=== PATIENT | female | born 1960 | race Caucasian/White ===

== ENCOUNTER 2020-07-10 12:55 | Outpatient (CLI) | payer MEDICARE, MEDICAID ==
[2020-07-11 01:48] LABS: SARS-CoV-2 PCR by NAA Not Detected (NotDetected)
== END 2020-07-10 12:56 | disposition home or self-care (01) ==
LOC: CSHLAB 12:55
PROVIDERS: ATTEND Internal Medicine Pulmonary Disease
DX: Z20.822 Contact with and (suspected) exposure to COVID-19 (principal); J44.9 Chronic obstructive pulmonary disease, unspecified
CPT/HCPCS: 87635; U0003; U0005

== ENCOUNTER 2020-07-16 13:51 | Outpatient (CLI) | payer MEDICARE, MEDICAID | END 2020-07-16 13:52 | disposition home or self-care (01) | LOC: CSHCP 13:51 | PROVIDERS: ATTEND Internal Medicine Pulmonary Disease | DX: J44.9 Chronic obstructive pulmonary disease, unspecified (principal); R94.2 Abnormal results of pulmonary function studies | CPT/HCPCS: 94060; 94726; 94729; 94760 ==

== ENCOUNTER 2021-01-18 14:21 | Inpatient (IN) | payer MEDICARE, MEDICAID ==
[2021-01-18] MEDS ORDERED: methylPREDNISolone Sod Succ/PF 125 MG/2 ML VIAL ONE (14:33)
[2021-01-18] MEDS ORDERED: Morphine 4 MG/ML VIAL ONE (14:34)
[2021-01-18 15:11] LABS: ALT (SGPT) 30 U/L (8-55); AST (SGOT) 26 U/L (5-34); Albumin 4.6 g/dL (3.5-5.0); Alkaline Phosphatase 121 U/L (40-110); BUN (Urea Nitrogen) 10 mg/dL (9.8-20.1); Bilirubin, Total 0.3 mg/dL (0.2-1.2); Calc. Creatinine Clearance 0 mL/min (70-130); Calcium 9.9 mg/dL (7.8-10.44); Globulin 2.7 g/dL (2.4-3.5); Glucose 119 mg/dL (70-105); Protein, Total 7.3 g/dL (6.0-8.3)
[2021-01-18 15:18] LABS: #Monocytes 0.8 10x3/uL (0.0-1.1); #Neutrophils 4.7 10x3/uL (1.5-8.4); %Basophils 0.2 % (0.0-2.0); %Eosinophils 0.2 % (0.0-6.0); %Lymphocytes 12.3 % (18.0-47.0); %Monocytes 13.2 % (0.0-10.0); %Neutrophils 73.8 % (40.0-75.0); Hemoglobin 12.4 g/dL (12.0-15.5); Mean Corpuscular HGB CONC 29.2 g/dL (32.0-36.0); Mean Corpuscular Hemoglobin 30.3 pg (27.0-33.0); Mean Corpuscular Volume 103.9 fl (81.6-98.3); Mean Platelet Volume 8.9 fl (7.4-10.4); Platelet Count 225 10x3/uL (150-450); RBC Distribution Width 14.6 % (11.5-14.5); Red Blood Cell (RBC) Count 4.09 10x6/uL (3.90-5.03); White Blood Cell (WBC) Count 6.4 10x3/uL (3.5-10.5)
[2021-01-18 15:19] LABS: Anion Gap 18 mmol/L (10-20); Carbon Dioxide 39 mmol/L (22-29); Chloride 92 mmol/L (98-107); Potassium 3.8 mmol/L (3.5-5.1); Sodium 145 mmol/L (136-145)
[2021-01-18] MEDS ORDERED: cefTRIAXone\\ROCEPHIN 2 GM VIAL ONE (15:19)
[2021-01-18] MEDS ORDERED: Azithromycin 500 MG VIAL ONE (15:19)
[2021-01-18 15:22] LABS: Actual Bicarbonate (HCO3v) 45 mEq/L (22-28); Base Excess 12.5 mEq/L (-2.0 to +3.0); Chloride (VBG) 91 mmol/L (98-106); Hemoglobin (Hb) 15.4 g/dL (11.7-16.0); Puncture Site Other Site; RapidComm Collect By LAB; Sodium 142.6 mmol/L (133-146); pH (venous) 7.26 (7.32-7.43)
[2021-01-18] MEDS ORDERED: Albuterol Sulfate 2.5 mg/3 ml Neb NEB PRN (16:37)
[2021-01-18] MEDS ORDERED: Acetaminophen 325 MG TAB PO PRN (16:39)
[2021-01-18] MEDS ORDERED: Ondansetron ODT 4 MG TAB PO PRN (16:39)
[2021-01-18] MEDS ORDERED: Acetaminophen 650 MG Suppository PR PRN (16:39)
[2021-01-18] MEDS ORDERED: Bisacodyl 5 MG TAB PO PRN ×2 (16:39→20:55)
[2021-01-18] MEDS ORDERED: Senokot S 8.6-50 MG TAB PO PRN (16:39)
[2021-01-18] MEDS ORDERED: Ondansetron PF 4 MG/2 ML Vial IVP PRN (16:39)
[2021-01-18 16:56] LABS: Actual Bicarbonate (HCO3a) 49.8 mEq/L (22-28); Base Excess (BEa) 15.7 mEq/L (-2.0 to +3.0); CO2 Tension 141.5 mmHg (35.0-45.0); Calcium, Ionized (arterial) 1.26 mmol/L (1.12-1.30); Carboxyhemoglobin (COHb) 2.5 gm% (0.0-3.0); Hemoglobin (Hb) 12.4 g/dL (12.0-16.0); O2 Tension (PaO2), arterial 238.2 mmHg (80.0-100.0); Potassium - ABG Lab 4.4 mmol/L (3.70-5.30); Puncture Site LBA; pH, Arterial 7.16 (7.35-7.45)
[2021-01-18 17:00] LABS: ALV-art Gradient -158.395 mmHg (0-20)
[2021-01-18] MEDS ORDERED: Midazolam HCl 2 mg/2 ml Vial ONE (17:23)
[2021-01-18] MEDS ORDERED: Electrolyte Replacement Protocol 1 EACH IVPB PRN (17:36)
[2021-01-18] MEDS ORDERED: Ventilator Sedation Protocol 1 EACH FS PRN (17:45)
[2021-01-18 18:03] LABS: Troponin I Less than 0.010 ng/mL (< 0.028)
[2021-01-18] MEDS ORDERED: Propofol 1,000 MG/100 ML VIAL IV ONE (18:03)
[2021-01-18] MEDS ORDERED: Albuterol Sulfate 2.5 mg/3 ml Neb ONE (18:32)
[2021-01-18] MEDS ORDERED: fentaNYL Citrate-0.9 % NaCl/PF 100 ML IVPB SCH (19:00)
[2021-01-18] MEDS ORDERED: Propofol BOLUS 1,000 MG/100 ML VIAL IV PRN (19:15)
[2021-01-18] MEDS ORDERED: DISCONTINUE PREVIOUS NARCOTIC PAIN MEDICATIONS AND BENZODIAZEPINES FS SCH (19:15)
[2021-01-18] MEDS ORDERED: Fentanyl BOLUS 250 ML IVPB PRN (19:15)
[2021-01-18] MEDS ORDERED: Morphine 2 MG/ML VIAL SLOW IVP PRN (19:15)
[2021-01-18 19:19] LABS: SARS-CoV-2 NAA Rapid Test Not Detected (NotDetected)
[2021-01-18] MEDS: fentaNYL Citrate-0.9 % NaCl/PF 100 ML IVPB SCH (19:35)
[2021-01-18 19:54] LABS: CO2 Tension 61.1 mmHg (35.0-45.0); Calcium, Ionized (arterial) 1.13 mmol/L (1.12-1.30); Hemoglobin (Hb) 12.2 g/dL (12.0-16.0); O2 Tension (PaO2), arterial 82.6 mmHg (80.0-100.0); Potassium - ABG Lab 4.2 mmol/L (3.70-5.30); Puncture Site RRA; pH, Arterial 7.38 (7.35-7.45)
[2021-01-18 19:58] LABS: ALV-art Gradient 90.575 mmHg (0-20)
[2021-01-18] MEDS ORDERED: PROPOFOL 200 MG/20 ML VIAL ONE (20:20)
[2021-01-18] MEDS ORDERED: Rocuronium Bromide 10 MG/ML (10ML VIAL) ONE (20:20)
[2021-01-18] MEDS ORDERED: Succinylcholine 200 MG/10 ml SYRINGE FS ONE (20:20)
[2021-01-18] MEDS ORDERED: Magnesium 2 GM/50 ML 2 GM in Premix Bag 1 BAG IVPB SCH (21:00)
[2021-01-18] MEDS ORDERED: Ventilator Sedation Protocol 1 EACH FS SCH (21:00)
[2021-01-18 21:50] LABS: Troponin I Less than 0.010 ng/mL (< 0.028)
[2021-01-18] MEDS: Heparin 5,000 UNITS/ML VIAL SC SCH (21:55)
[2021-01-18] MEDS: levETIRAcetam 500 MG TAB PO SCH (21:56)
[2021-01-18 21:59] LABS: Bilirubin Neg (Negative); Blood, Urine Negative (Negative); Clarity Clear (Clear); Glucose, Urine (Dipstick) Normal (Negative); Ketone, Urine Negative (Negative); Leukocyte Negative (Negative); Nitrite Negative (Negative); Protein, Urine (Dipstick) 30 mg/dl (Neg-Trace); Specific Gravity, Urine 1.015 (1.002-1.036); Urobilinogen Normal mg/dL (Less than 2); pH, Urine 6.5 (5.0-9.0)
[2021-01-18 22:17] LABS: Bacteria/HPF Rare-Few HPF (None Seen); RBC/HPF 0-3 HPF (0-3); Squamous Epithelial 0-3 HPF (0-3); Transitional Epithelial 0-3 HPF (None Seen); WBC/HPF 0-3 HPF (0-3)
[2021-01-18 22:18] LABS: Mucous/LPF Rare LPF (<2+)
[2021-01-18 22:20] LABS: Legionella Urinary Ag Negative (Negative); Strep pneumo Urine Ag NEGATIVE (NEGATIVE)
[2021-01-18] MEDS ORDERED: FLU VACC QS2021-22(6MOS UP)/PF 60 MCG/0.5 ML SYRINGE IM ONE (22:30)
[2021-01-18] MEDS ORDERED: methylPREDNISolone Sod Succ 40 MG VIAL IVP SCH (23:59)
[2021-01-19] MEDS: methylPREDNISolone Sod Succ 40 MG VIAL IVP SCH ×4 (00:09→17:47)
[2021-01-19] MEDS: Lorazepam 2 MG/ML VIAL SLOW IVP PRN ×3 (01:02→08:42)
[2021-01-19] MEDS: Propofol 1,000 MG/100 ML VIAL IV PRN ×2 (02:51→23:42)
[2021-01-19] MEDS: Albuterol Sulfate 2.5 mg/0.5 ml Neb NEB PRN (03:40)
[2021-01-19 03:50] LABS: #Monocytes 0.4 10x3/uL (0.0-1.1); #Neutrophils 6.4 10x3/uL (1.5-8.4); %Basophils 0.1 % (0.0-2.0); %Lymphocytes 4.2 % (18.0-47.0); %Neutrophils 89.3 % (40.0-75.0); Hemoglobin 10.8 g/dL (12.0-15.5); Mean Corpuscular HGB CONC 31.7 g/dL (32.0-36.0); Mean Corpuscular Hemoglobin 32.8 pg (27.0-33.0); Mean Corpuscular Volume 103.6 fl (81.6-98.3); Mean Platelet Volume 10.3 fl (7.4-10.4); Platelet Count 171 10x3/uL (150-450); RBC Distribution Width 14.3 % (11.5-14.5); Red Blood Cell (RBC) Count 3.29 10x6/uL (3.90-5.03); White Blood Cell (WBC) Count 7.1 10x3/uL (3.5-10.5)
[2021-01-19 04:06] LABS: Phosphorus 1.2 mg/dL (2.3-4.7)
[2021-01-19 04:11] LABS: ALT (SGPT) 23 U/L (8-55); AST (SGOT) 31 U/L (5-34); Albumin 3.1 g/dL (3.5-5.0); Alkaline Phosphatase 71 U/L (40-110); Anion Gap 16 mmol/L (10-20); BUN (Urea Nitrogen) 11 mg/dL (9.8-20.1); Bilirubin, Total 0.3 mg/dL (0.2-1.2); Calc. Creatinine Clearance 45 mL/min (70-130); Carbon Dioxide 29 mmol/L (22-29); Chloride 93 mmol/L (98-107); Globulin 3.1 g/dL (2.4-3.5); Glucose 95 mg/dL (70-105); Magnesium 2.1 mg/dL (1.6-2.6); Potassium 4.8 mmol/L (3.5-5.1); Protein, Total 6.2 g/dL (6.0-8.3); Sodium 133 mmol/L (136-145)
[2021-01-19] MEDS ORDERED: Potassium Phosphate 30 MMOL in Sodium Chloride 0.9% 500 ML IVPB SCH (05:00)
[2021-01-19] MEDS: Levothyroxine Sodium 50 MCG TAB PO SCH (05:25)
[2021-01-19 07:24] LABS: ALV-art Gradient 104.525 mmHg (0-20); Actual Bicarbonate (HCO3a) 34.4 mEq/L (22-28); Base Excess (BEa) 9.5 mEq/L (-2.0 to +3.0); CO2 Tension 48.5 mmHg (35.0-45.0); Calcium, Ionized (arterial) 1.11 mmol/L (1.12-1.30); Carboxyhemoglobin (COHb) 0.8 gm% (0.0-3.0); Hemoglobin (Hb) 10.7 g/dL (12.0-16.0); O2 Tension (PaO2), arterial 84.4 mmHg (80.0-100.0); Potassium - ABG Lab 4.3 mmol/L (3.70-5.30); Puncture Site RRA; pH, Arterial 7.47 (7.35-7.45)
[2021-01-19] MEDS: Famotidine/PF 20 mg/2ml Vial SLOW IVP SCH (08:00)
[2021-01-19] MEDS: levETIRAcetam 500 MG TAB PO SCH ×2 (08:13→20:15)
[2021-01-19] MEDS: Heparin 5,000 UNITS/ML VIAL SC SCH ×2 (08:14→20:15)
[2021-01-19] MEDS: Nicotine 21 MG PATCH TD SCH (08:14)
[2021-01-19] MEDS ORDERED: cefTRIAXone\\ROCEPHIN 2 GM in Sodium Chloride 0.9% 100 ML IVPB SCH (15:00)
[2021-01-19] MEDS ORDERED: cefTRIAXone\\ROCEPHIN 1 GM in Sodium Chloride 0.9% 100 ML IVPB SCH (15:00)
[2021-01-19] MEDS: fentaNYL Citrate-0.9 % NaCl/PF 100 ML IVPB SCH (15:16)
[2021-01-19] MEDS: Azithromycin 500 MG in Sodium Chloride 0.9% 250 ML 250 ML IVPB SCH (15:59)
[2021-01-19] MEDS ORDERED: Azithromycin 500 MG in Sodium Chloride 0.9% 250 ML 250 ML IVPB SCH (16:00)
[2021-01-19] MEDS ORDERED: Norepinephrine 8 MG/0.9% NS 250 ML ONE (17:00)
[2021-01-19] MEDS ORDERED: Norepinephrine 8 MG/0.9% NS 250 ML IVPB SCH (17:00)
[2021-01-20] MEDS: fentaNYL Citrate-0.9 % NaCl/PF 100 ML IVPB SCH (00:35)
[2021-01-20] MEDS: methylPREDNISolone Sod Succ 40 MG VIAL IVP SCH ×3 (00:35→20:06)
[2021-01-20] MEDS: Lorazepam 2 MG/ML VIAL SLOW IVP PRN ×4 (00:35→16:57)
[2021-01-20] MEDS: Levothyroxine Sodium 50 MCG TAB PO SCH (04:57)
[2021-01-20 06:31] LABS: ALT (SGPT) 22 U/L (8-55); AST (SGOT) 38 U/L (5-34); Albumin 2.8 g/dL (3.5-5.0); Alkaline Phosphatase 64 U/L (40-110); Anion Gap 12 mmol/L (10-20); BUN (Urea Nitrogen) 12 mg/dL (9.8-20.1); Bilirubin, Total 0.3 mg/dL (0.2-1.2); Calc. Creatinine Clearance 50 mL/min (70-130); Calcium 7.7 mg/dL (7.8-10.44); Carbon Dioxide 27 mmol/L (22-29); Chloride 105 mmol/L (98-107); Globulin 1.7 g/dL (2.4-3.5); Glucose 119 mg/dL (70-105); Protein, Total 4.5 g/dL (6.0-8.3); Sodium 140 mmol/L (136-145)
[2021-01-20 07:23] LABS: Anisocytosis SLIGHT = 6-15 cells (100X) (0-5/hpf); Band 4 % (5-11); Hemoglobin 8.8 g/dL (12.0-15.5); Hypochromia SLIGHT = 6-15 cells (100X) (0-5/hpf); Large Platelets SLIGHT; Lymphocytes 4 % (21-51); MDiff Complete? YES; Macrocytosis SLIGHT = 6-15 cells (100X) (0-5/hpf); Mean Corpuscular HGB CONC 30.8 g/dL (32.0-36.0); Mean Corpuscular Hemoglobin 30.3 pg (27.0-33.0); Mean Corpuscular Volume 98.6 fl (81.6-98.3); Mean Platelet Volume 9.5 fl (7.4-10.4); Monocytes 6 % (0-10); Neutrophil 85 % (42-75); Ovalocytes SLIGHT = 2-5 cells (100X) (0-1/hpf); Phosphorus 3.3 mg/dL (2.3-4.7); Platelet Count 170 10x3/uL (150-450); RBC Distribution Width 15.2 % (11.5-14.5); Reactive Lymphocytes 1 % (0-10); White Blood Cell (WBC) Count 9.3 10x3/uL (3.5-10.5)
[2021-01-20 07:46] LABS: ALV-art Gradient 538.125 mmHg (0-20); Actual Bicarbonate (HCO3a) 29.4 mEq/L (22-28); Base Excess (BEa) 3.9 mEq/L (-2.0 to +3.0); CO2 Tension 49.7 mmHg (35.0-45.0); Calcium, Ionized (arterial) 1.14 mmol/L (1.12-1.30); Carboxyhemoglobin (COHb) 0.3 gm% (0.0-3.0); Hemoglobin (Hb) 8.8 g/dL (12.0-16.0); O2 Tension (PaO2), arterial 77.1 mmHg (80.0-100.0); Potassium - ABG Lab 3.9 mmol/L (3.70-5.30); Puncture Site RRA; pH, Arterial 7.39 (7.35-7.45)
[2021-01-20] MEDS: Nicotine 21 MG PATCH TD SCH (09:14)
[2021-01-20] MEDS: levETIRAcetam 500 MG TAB PO SCH ×2 (09:14→20:06)
[2021-01-20] MEDS: Famotidine/PF 20 mg/2ml Vial SLOW IVP SCH (09:16)
[2021-01-20] MEDS: Heparin 5,000 UNITS/ML VIAL SC SCH ×2 (09:16→20:06)
[2021-01-20] MEDS: Dexmedetomidine In 0.9 % NaCl 100 ML IVPB SCH ×2 (10:40→20:08)
[2021-01-20 10:43] LABS: Iron 86 ug/dL (50-170); Iron Binding Capacity, Total 303 mcg/dL (265-497)
[2021-01-20] MEDS: Azithromycin 500 MG in Sodium Chloride 0.9% 250 ML 250 ML IVPB SCH (15:30)
[2021-01-20] MEDS: Ondansetron PF 4 MG/2 ML Vial IVP PRN (15:30)
[2021-01-20] MEDS: Albuterol Sulfate 2.5 mg/0.5 ml Neb NEB PRN (19:45)
[2021-01-20] MEDS: Cyproheptadine 4 MG TAB PO SCH (20:06)
[2021-01-21 03:54] LABS: ALT (SGPT) 31 U/L (8-55); AST (SGOT) 53 U/L (5-34); Albumin 2.8 g/dL (3.5-5.0); Alkaline Phosphatase 63 U/L (40-110); Anion Gap 11 mmol/L (10-20); BUN (Urea Nitrogen) 10 mg/dL (9.8-20.1); Bilirubin, Total 0.3 mg/dL (0.2-1.2); Calc. Creatinine Clearance 66 mL/min (70-130); Calcium 8.2 mg/dL (7.8-10.44); Carbon Dioxide 32 mmol/L (22-29); Chloride 107 mmol/L (98-107); Globulin 1.8 g/dL (2.4-3.5); Glucose 85 mg/dL (70-105); Potassium 4.8 mmol/L (3.5-5.1); Sodium 145 mmol/L (136-145)
[2021-01-21 03:57] LABS: Protein, Total 4.6 g/dL (6.0-8.3)
[2021-01-21 04:56] LABS: Band 1 % (5-11); Basophilic Stippling SLIGHT = 1-2 cells (100X) (None Seen); Hemoglobin 8.9 g/dL (12.0-15.5); Hypochromia SLIGHT = 6-15 cells (100X) (0-5/hpf); Lymphocytes 8 % (21-51); MDiff Complete? YES; Macrocytosis SLIGHT = 6-15 cells (100X) (0-5/hpf); Mean Corpuscular HGB CONC 29.5 g/dL (32.0-36.0); Mean Corpuscular Hemoglobin 30.8 pg (27.0-33.0); Mean Corpuscular Volume 104.5 fl (81.6-98.3); Mean Platelet Volume 9.5 fl (7.4-10.4); Monocytes 7 % (0-10); Neutrophil 84 % (42-75); Platelet Count 161 10x3/uL (150-450); Platelet Morphology Comment Appears Adequate; RBC Distribution Width 15.2 % (11.5-14.5); Red Blood Cell (RBC) Count 2.89 10x6/uL (3.90-5.03); White Blood Cell (WBC) Count 9.8 10x3/uL (3.5-10.5)
[2021-01-21] MEDS: Ondansetron PF 4 MG/2 ML Vial IVP PRN ×2 (05:37→17:05)
[2021-01-21] MEDS: Morphine 4 MG/ML VIAL SLOW IVP PRN ×3 (05:37→17:05)
[2021-01-21] MEDS: Lorazepam 2 MG/ML VIAL SLOW IVP PRN (05:38)
[2021-01-21] MEDS: Levothyroxine Sodium 50 MCG TAB PO SCH (05:38)
[2021-01-21] MEDS: methylPREDNISolone Sod Succ 40 MG VIAL IVP SCH ×2 (08:14→21:33)
[2021-01-21] MEDS: levETIRAcetam 500 MG TAB PO SCH ×2 (08:15→21:31)
[2021-01-21] MEDS: Folic Acid 1 MG TAB PO SCH (08:15)
[2021-01-21] MEDS: Famotidine/PF 20 mg/2ml Vial SLOW IVP SCH ×2 (08:15→21:33)
[2021-01-21] MEDS: Nicotine 21 MG PATCH TD SCH (08:15)
[2021-01-21] MEDS: Heparin 5,000 UNITS/ML VIAL SC SCH ×3 (08:15→21:50)
[2021-01-21] MEDS: pyridOXINE 50 MG (B6) TAB PO SCH (08:16)
[2021-01-21] MEDS: Cyproheptadine 4 MG TAB PO SCH ×2 (08:29→21:33)
[2021-01-21] MEDS: Azithromycin 500 MG in Sodium Chloride 0.9% 250 ML 250 ML IVPB SCH (16:25)
[2021-01-22] MEDS: Morphine 4 MG/ML VIAL SLOW IVP PRN ×4 (01:29→22:05)
[2021-01-22 03:35] LABS: Anion Gap 12 mmol/L (10-20); BUN (Urea Nitrogen) 10 mg/dL (9.8-20.1); Calc. Creatinine Clearance 49 mL/min (70-130); Calcium 8.4 mg/dL (7.8-10.44); Carbon Dioxide 34 mmol/L (22-29); Chloride 103 mmol/L (98-107); Glucose 141 mg/dL (70-105); Potassium 4.6 mmol/L (3.5-5.1); Sodium 144 mmol/L (136-145)
[2021-01-22 03:41] LABS: Hemoglobin 10.4 g/dL (12.0-15.5); Mean Corpuscular HGB CONC 28.6 g/dL (32.0-36.0); Mean Corpuscular Volume 104.9 fl (81.6-98.3); Mean Platelet Volume 9.4 fl (7.4-10.4); Platelet Count 187 10x3/uL (150-450); RBC Distribution Width 15.1 % (11.5-14.5); Red Blood Cell (RBC) Count 3.47 10x6/uL (3.90-5.03); White Blood Cell (WBC) Count 8.3 10x3/uL (3.5-10.5)
[2021-01-22 04:23] LABS: Platelet Morphology Comment Appears Adequate; RBC Morphology Normal
[2021-01-22 04:24] LABS: MDiff Complete? YES
[2021-01-22 04:27] LABS: Lymphocytes 6 % (21-51); Monocytes 1 % (0-10); Neutrophil 93 % (42-75)
[2021-01-22] MEDS: Levothyroxine Sodium 50 MCG TAB PO SCH (05:53)
[2021-01-22] MEDS ORDERED: Sodium Chloride 0.65% Nasal 44 ML BOT EA NARE PRN (09:07)
[2021-01-22] MEDS: Cyproheptadine 4 MG TAB PO SCH ×2 (10:07→21:44)
[2021-01-22] MEDS: Folic Acid 1 MG TAB PO SCH (10:08)
[2021-01-22] MEDS: pyridOXINE 50 MG (B6) TAB PO SCH (10:08)
[2021-01-22] MEDS: levETIRAcetam 500 MG TAB PO SCH ×2 (10:08→21:44)
[2021-01-22] MEDS: Heparin 5,000 UNITS/ML VIAL SC SCH ×2 (10:08→22:34)
[2021-01-22] MEDS: Nicotine 21 MG PATCH TD SCH (10:09)
[2021-01-22] MEDS: methylPREDNISolone Sod Succ 40 MG VIAL IVP SCH (10:09)
[2021-01-22] MEDS: Famotidine/PF 20 mg/2ml Vial SLOW IVP SCH ×2 (10:09→21:45)
[2021-01-22] MEDS: ALPRAZolam 1 MG TAB PO PRN ×2 (11:26→19:25)
[2021-01-22] MEDS: Azithromycin 500 MG in Sodium Chloride 0.9% 250 ML 250 ML IVPB SCH (16:36)
[2021-01-22] MEDS ORDERED: Losartan 25 MG TAB PO SCH (18:45)
[2021-01-22] MEDS ORDERED: QUETIAPINE FUMARATE PO SCH (21:00)
[2021-01-22] MEDS: hydrALAZINE 20 MG/ML VIAL SLOW IVP PRN (22:05)
[2021-01-23] MEDS: Morphine 4 MG/ML VIAL SLOW IVP PRN ×3 (03:11→22:42)
[2021-01-23] MEDS: Levothyroxine Sodium 50 MCG TAB PO SCH (06:13)
[2021-01-23] MEDS: Famotidine/PF 20 mg/2ml Vial SLOW IVP SCH ×2 (08:11→20:36)
[2021-01-23] MEDS: hydrALAZINE 20 MG/ML VIAL SLOW IVP PRN (08:12)
[2021-01-23] MEDS: Cyanocobalamin (Vitamin B-12) 1,000 MCG TAB PO SCH (08:21)
[2021-01-23] MEDS: Cyproheptadine 4 MG TAB PO SCH ×2 (08:22→20:35)
[2021-01-23] MEDS: ALPRAZolam 1 MG TAB PO PRN ×3 (08:22→20:58)
[2021-01-23] MEDS: Losartan Potassium 50 MG TAB PO SCH (08:22)
[2021-01-23] MEDS: Folic Acid 1 MG TAB PO SCH (08:22)
[2021-01-23] MEDS: Fluticasone Propionate Nasal Spray 16 gm Bottle NASAL SCH (08:24)
[2021-01-23] MEDS: Heparin 5,000 UNITS/ML VIAL SC SCH (08:24)
[2021-01-23] MEDS: levETIRAcetam 500 MG TAB PO SCH ×2 (08:25→20:35)
[2021-01-23] MEDS: Nicotine 21 MG PATCH TD SCH (08:25)
[2021-01-23] MEDS: pyridOXINE 50 MG (B6) TAB PO SCH (08:25)
[2021-01-23] MEDS: predniSONE 20 MG TAB PO SCH (08:51)
[2021-01-23] MEDS ORDERED: methylPREDNISolone Sod Succ/PF 125 MG/2 ML VIAL IVP SCH (09:00)
[2021-01-23] MEDS ORDERED: Cepastat Lozenges 1 LOZ PO PRN (11:24)
[2021-01-23] MEDS: Acetaminophen 325 MG TAB PO PRN (15:10)
[2021-01-23] MEDS: Azithromycin 500 MG in Sodium Chloride 0.9% 250 ML 250 ML IVPB SCH (15:10)
[2021-01-23] MEDS: Amlodipine 5 MG TAB PO SCH (15:10)
[2021-01-24 04:28] LABS: Anion Gap 11 mmol/L (10-20); BUN (Urea Nitrogen) 12 mg/dL (9.8-20.1); Calc. Creatinine Clearance 63 mL/min (70-130); Calcium 8.8 mg/dL (7.8-10.44); Carbon Dioxide 31 mmol/L (22-29); Chloride 107 mmol/L (98-107); Glucose 90 mg/dL (70-105); Potassium 4.8 mmol/L (3.5-5.1); Sodium 144 mmol/L (136-145)
[2021-01-24] MEDS: Heparin 5,000 UNITS/ML VIAL SC SCH ×2 (07:02→08:27)
[2021-01-24] MEDS: Levothyroxine Sodium 50 MCG TAB PO SCH (07:03)
[2021-01-24] MEDS: Famotidine/PF 20 mg/2ml Vial SLOW IVP SCH ×2 (08:25→21:48)
[2021-01-24] MEDS: Losartan Potassium 50 MG TAB PO SCH (08:25)
[2021-01-24] MEDS: Cyproheptadine 4 MG TAB PO SCH ×2 (08:25→21:47)
[2021-01-24] MEDS: levETIRAcetam 500 MG TAB PO SCH ×2 (08:26→21:47)
[2021-01-24] MEDS: Acetaminophen 325 MG TAB PO PRN (08:26)
[2021-01-24] MEDS: Folic Acid 1 MG TAB PO SCH (08:26)
[2021-01-24] MEDS: ALPRAZolam 1 MG TAB PO PRN ×3 (08:26→21:47)
[2021-01-24] MEDS: Nicotine 21 MG PATCH TD SCH (08:27)
[2021-01-24] MEDS: Cyanocobalamin (Vitamin B-12) 1,000 MCG TAB PO SCH (08:27)
[2021-01-24] MEDS: Amlodipine 5 MG TAB PO SCH (08:27)
[2021-01-24] MEDS: predniSONE 20 MG TAB PO SCH (08:27)
[2021-01-24] MEDS: pyridOXINE 50 MG (B6) TAB PO SCH (08:27)
[2021-01-24] MEDS: Fluticasone Propionate Nasal Spray 16 gm Bottle NASAL SCH (08:28)
[2021-01-24] MEDS: Morphine 4 MG/ML VIAL SLOW IVP PRN ×2 (12:08→18:41)
[2021-01-25] MEDS: Morphine 4 MG/ML VIAL SLOW IVP PRN ×5 (01:25→22:16)
[2021-01-25] MEDS: Heparin 5,000 UNITS/ML VIAL SC SCH ×3 (03:12→20:35)
[2021-01-25 05:07] LABS: #Basophils 0.1 10x3/uL (0.0-0.2); #Eosinphils 0.2 10x3/uL (0.0-0.5); #Monocytes 1.2 10x3/uL (0.0-1.1); #Neutrophils 6.2 10x3/uL (1.5-8.4); %Basophils 0.6 % (0.0-2.0); %Eosinophils 2.2 % (0.0-6.0); %Lymphocytes 11.7 % (18.0-47.0); %Monocytes 13.6 % (0.0-10.0); %Neutrophils 71.7 % (40.0-75.0); Hemoglobin 11.4 g/dL (12.0-15.5); Mean Corpuscular Hemoglobin 30.4 pg (27.0-33.0); Mean Corpuscular Volume 101.3 fl (81.6-98.3); Mean Platelet Volume 9.2 fl (7.4-10.4); Platelet Count 272 10x3/uL (150-450); RBC Distribution Width 15.5 % (11.5-14.5); Red Blood Cell (RBC) Count 3.75 10x6/uL (3.90-5.03); White Blood Cell (WBC) Count 8.6 10x3/uL (3.5-10.5)
[2021-01-25 05:37] LABS: ALT (SGPT) 43 U/L (8-55); AST (SGOT) 23 U/L (5-34); Albumin 3.5 g/dL (3.5-5.0); Alkaline Phosphatase 86 U/L (40-110); Anion Gap 14 mmol/L (10-20); BUN (Urea Nitrogen) 12 mg/dL (9.8-20.1); Bilirubin, Total 0.2 mg/dL (0.2-1.2); Calc. Creatinine Clearance 61 mL/min (70-130); Calcium 8.9 mg/dL (7.8-10.44); Carbon Dioxide 27 mmol/L (22-29); Chloride 106 mmol/L (98-107); Globulin 2.4 g/dL (2.4-3.5); Glucose 74 mg/dL (70-105); Magnesium 1.9 mg/dL (1.6-2.6); Phosphorus 3.9 mg/dL (2.3-4.7); Potassium 4.2 mmol/L (3.5-5.1); Protein, Total 5.9 g/dL (6.0-8.3); Sodium 143 mmol/L (136-145)
[2021-01-25] MEDS: ALPRAZolam 1 MG TAB PO PRN ×3 (06:15→20:38)
[2021-01-25] MEDS: Levothyroxine Sodium 50 MCG TAB PO SCH (06:15)
[2021-01-25] MEDS: Cyproheptadine 4 MG TAB PO SCH ×2 (09:11→20:34)
[2021-01-25] MEDS: Famotidine/PF 20 mg/2ml Vial SLOW IVP SCH ×2 (09:11→20:34)
[2021-01-25] MEDS: Nicotine 21 MG PATCH TD SCH (09:11)
[2021-01-25] MEDS: predniSONE 20 MG TAB PO SCH (09:12)
[2021-01-25] MEDS: Cyanocobalamin (Vitamin B-12) 1,000 MCG TAB PO SCH (09:12)
[2021-01-25] MEDS: Losartan Potassium 50 MG TAB PO SCH (09:13)
[2021-01-25] MEDS: Fluticasone Propionate Nasal Spray 16 gm Bottle NASAL SCH (09:14)
[2021-01-25] MEDS: Folic Acid 1 MG TAB PO SCH (09:14)
[2021-01-25] MEDS: pyridOXINE 50 MG (B6) TAB PO SCH (09:14)
[2021-01-25] MEDS: Amlodipine 5 MG TAB PO SCH (09:14)
[2021-01-25] MEDS: levETIRAcetam 500 MG TAB PO SCH ×2 (09:14→20:34)
[2021-01-25] MEDS: Acetaminophen 325 MG TAB PO PRN (18:24)
[2021-01-26] MEDS: Acetaminophen 325 MG TAB PO PRN ×2 (00:30→14:45)
[2021-01-26] MEDS: ALPRAZolam 1 MG TAB PO PRN ×3 (00:31→21:15)
[2021-01-26 04:54] LABS: #Eosinphils 0.2 10x3/uL (0.0-0.5); #Neutrophils 4.7 10x3/uL (1.5-8.4); %Basophils 0.6 % (0.0-2.0); %Eosinophils 2.2 % (0.0-6.0); %Lymphocytes 13.6 % (18.0-47.0); %Monocytes 14.3 % (0.0-10.0); Hemoglobin 10.2 g/dL (12.0-15.5); Mean Corpuscular HGB CONC 30.4 g/dL (32.0-36.0); Mean Corpuscular Hemoglobin 30.8 pg (27.0-33.0); Mean Corpuscular Volume 101.5 fl (81.6-98.3); Mean Platelet Volume 8.6 fl (7.4-10.4); Platelet Count 279 10x3/uL (150-450); RBC Distribution Width 15.6 % (11.5-14.5); Red Blood Cell (RBC) Count 3.31 10x6/uL (3.90-5.03); White Blood Cell (WBC) Count 6.9 10x3/uL (3.5-10.5)
[2021-01-26 05:05] LABS: ALT (SGPT) 36 U/L (8-55); AST (SGOT) 20 U/L (5-34); Albumin 3.1 g/dL (3.5-5.0); Alkaline Phosphatase 78 U/L (40-110); Anion Gap 12 mmol/L (10-20); BUN (Urea Nitrogen) 17 mg/dL (9.8-20.1); Bilirubin, Total 0.1 mg/dL (0.2-1.2); Calc. Creatinine Clearance 65 mL/min (70-130); Calcium 8.3 mg/dL (7.8-10.44); Carbon Dioxide 30 mmol/L (22-29); Chloride 103 mmol/L (98-107); Globulin 2.1 g/dL (2.4-3.5); Glucose 96 mg/dL (70-105); Magnesium 1.8 mg/dL (1.6-2.6); Potassium 4.1 mmol/L (3.5-5.1); Protein, Total 5.2 g/dL (6.0-8.3); Sodium 141 mmol/L (136-145)
[2021-01-26] MEDS: Levothyroxine Sodium 50 MCG TAB PO SCH (05:33)
[2021-01-26] MEDS: hydrALAZINE 20 MG/ML VIAL SLOW IVP PRN (05:53)
[2021-01-26] MEDS: Morphine 4 MG/ML VIAL SLOW IVP PRN ×2 (06:06→10:53)
[2021-01-26 07:08] VITALS: BMI 14.4
[2021-01-26] MEDS ORDERED: ALPRAZolam 0.5 MG TAB PO SCH (09:00)
[2021-01-26] MEDS: Fluticasone Propionate Nasal Spray 16 gm Bottle NASAL SCH (09:08)
[2021-01-26] MEDS: pyridOXINE 50 MG (B6) TAB PO SCH (09:10)
[2021-01-26] MEDS: predniSONE 20 MG TAB PO SCH (09:10)
[2021-01-26] MEDS: Cyanocobalamin (Vitamin B-12) 1,000 MCG TAB PO SCH (09:11)
[2021-01-26] MEDS: Folic Acid 1 MG TAB PO SCH (09:11)
[2021-01-26] MEDS: Losartan Potassium 50 MG TAB PO SCH (09:11)
[2021-01-26] MEDS: Amlodipine 5 MG TAB PO SCH (09:11)
[2021-01-26] MEDS: Heparin 5,000 UNITS/ML VIAL SC SCH ×2 (09:13→21:14)
[2021-01-26] MEDS: levETIRAcetam 500 MG TAB PO SCH ×2 (09:13→21:14)
[2021-01-26] MEDS: Cyproheptadine 4 MG TAB PO SCH ×2 (09:13→21:14)
[2021-01-26] MEDS: Nicotine 21 MG PATCH TD SCH (09:14)
[2021-01-26] MEDS: Famotidine/PF 20 mg/2ml Vial SLOW IVP SCH ×2 (09:14→21:14)
[2021-01-26] MEDS: HYDROcodone/Acetaminophen 5/325 mg Tablet PO PRN (21:55)
[2021-01-27 04:15] LABS: #Eosinphils 0.1 10x3/uL (0.0-0.5); #Monocytes 0.8 10x3/uL (0.0-1.1); #Neutrophils 4.5 10x3/uL (1.5-8.4); %Basophils 0.5 % (0.0-2.0); %Eosinophils 2.1 % (0.0-6.0); %Lymphocytes 12.9 % (18.0-47.0); %Monocytes 13.2 % (0.0-10.0); %Neutrophils 70.8 % (40.0-75.0); Hemoglobin 10.3 g/dL (12.0-15.5); Mean Corpuscular HGB CONC 30.1 g/dL (32.0-36.0); Mean Corpuscular Hemoglobin 30.5 pg (27.0-33.0); Mean Corpuscular Volume 101.2 fl (81.6-98.3); Mean Platelet Volume 8.4 fl (7.4-10.4); Platelet Count 252 10x3/uL (150-450); RBC Distribution Width 15.7 % (11.5-14.5); Red Blood Cell (RBC) Count 3.38 10x6/uL (3.90-5.03); White Blood Cell (WBC) Count 6.3 10x3/uL (3.5-10.5)
[2021-01-27 04:40] LABS: ALT (SGPT) 36 U/L (8-55); AST (SGOT) 26 U/L (5-34); Alkaline Phosphatase 77 U/L (40-110); Anion Gap 11 mmol/L (10-20); BUN (Urea Nitrogen) 16 mg/dL (9.8-20.1); Bilirubin, Total 0.1 mg/dL (0.2-1.2); Calc. Creatinine Clearance 56 mL/min (70-130); Calcium 8.5 mg/dL (7.8-10.44); Carbon Dioxide 31 mmol/L (22-29); Chloride 103 mmol/L (98-107); Glucose 115 mg/dL (70-105); Magnesium 1.9 mg/dL (1.6-2.6); Phosphorus 4.7 mg/dL (2.3-4.7); Potassium 4.3 mmol/L (3.5-5.1); Sodium 141 mmol/L (136-145)
[2021-01-27 04:57] VITALS: BP 114/76; TEMP 96.2
[2021-01-27] MEDS: Levothyroxine Sodium 50 MCG TAB PO SCH (05:53)
[2021-01-27] MEDS: ALPRAZolam 1 MG TAB PO PRN (09:26)
[2021-01-27] MEDS: Nicotine 21 MG PATCH TD SCH (09:26)
[2021-01-27] MEDS: Fluticasone Propionate Nasal Spray 16 gm Bottle NASAL SCH (09:26)
[2021-01-27] MEDS: levETIRAcetam 500 MG TAB PO SCH (09:26)
[2021-01-27] MEDS: Losartan Potassium 50 MG TAB PO SCH (09:27)
[2021-01-27] MEDS: predniSONE 20 MG TAB PO SCH (09:27)
[2021-01-27] MEDS: pyridOXINE 50 MG (B6) TAB PO SCH (09:27)
[2021-01-27] MEDS: Amlodipine 5 MG TAB PO SCH (09:27)
[2021-01-27] MEDS: Cyanocobalamin (Vitamin B-12) 1,000 MCG TAB PO SCH (09:27)
[2021-01-27] MEDS: Cyproheptadine 4 MG TAB PO SCH (09:29)
[2021-01-27] MEDS: Famotidine/PF 20 mg/2ml Vial SLOW IVP SCH (09:29)
[2021-01-27] MEDS: Heparin 5,000 UNITS/ML VIAL SC SCH (09:30)
[2021-01-27] MEDS: Folic Acid 1 MG TAB PO SCH (09:30)
[2021-01-27] MEDS: HYDROcodone/Acetaminophen 5/325 mg Tablet PO PRN (10:00)
[2021-01-27] MEDS: Acetaminophen 325 MG TAB PO PRN (12:05)
[2021-01-27 14:20] LABS: SARS-CoV-2 PCR by NAA Not Detected (NotDetected)
== END 2021-01-27 16:30 | disposition home health service (06) | DRG 208 ==
LOC: CSHERS 14:21 → CSHICU 19:11 → CSHTELE 01-21 11:39
PROVIDERS: ADMIT Student in an Organized Health Care Education/Training Program; ATTEND Family Medicine
PROC: 5A1945Z Respiratory Ventilation, 24-96 Consecutive Hours (ICD-10-PCS; principal; 2021-01-18)
PROC: 0BH17EZ Insertion of Endotracheal Airway into Trachea, Via Natural or Artificial Opening (ICD-10-PCS; 2021-01-18)
PROC: 02HV33Z Insertion of Infusion Device into Superior Vena Cava, Percutaneous Approach (ICD-10-PCS; 2021-01-19)
PROC: B548ZZA Ultrasonography of Superior Vena Cava, Guidance (ICD-10-PCS; 2021-01-19)
DX: J96.21 Acute and chronic respiratory failure with hypoxia (principal); G93.41 Metabolic encephalopathy; E43 Unspecified severe protein-calorie malnutrition; J44.1 Chronic obstructive pulmonary disease with (acute) exacerbation; R64 Cachexia; Z68.1 Body mass index [BMI] 19.9 or less, adult; Z20.822 Contact with and (suspected) exposure to COVID-19; J96.22 Acute and chronic respiratory failure with hypercapnia; G40.909 Epilepsy, unspecified, not intractable, without status epilepticus; F40.240 Claustrophobia; I10 Essential (primary) hypertension; D53.9 Nutritional anemia, unspecified; E78.5 Hyperlipidemia, unspecified; F17.210 Nicotine dependence, cigarettes, uncomplicated; E03.9 Hypothyroidism, unspecified; Z71.6 Tobacco abuse counseling; Z99.81 Dependence on supplemental oxygen; Z88.8 Allergy status to other drugs, medicaments and biological substances; Z79.899 Other long term (current) drug therapy; Z98.890 Other specified postprocedural states; Z86.79 Personal history of other diseases of the circulatory system
CPT/HCPCS: 31500; 36415; 36416; 36600; 43752; 51702; 71045; 80048; 80053; 81001; 82607; 82746; 82805; 83540; 83550; 83735; 83880; 84100; 84145; 84443; 84484; 85007; 85025; 85027; 87040; 87070; 87205; 87449; 87899; 93005; 94002; 94003; 94640; 94760; 96374; 96375; J0360; J0456; J0696; J1644; J2060; J2250; J2270; J2405; J2704; J2920; J2930; J3475; J7030; J7050; J7512; J7611; J7620; S0028; U0002; U0003; U0005

== ENCOUNTER 2021-02-05 16:52 | Emergency (ER) | payer MEDICARE, MEDICAID ==
[2021-02-05 17:25] LABS: #Monocytes 0.9 10x3/uL (0.0-1.1); #Neutrophils 6.4 10x3/uL (1.5-8.4); %Basophils 0.2 % (0.0-2.0); %Eosinophils 0.5 % (0.0-6.0); %Lymphocytes 10.2 % (18.0-47.0); %Monocytes 10.7 % (0.0-10.0); Hemoglobin 11.1 g/dL (12.0-15.5); Mean Corpuscular HGB CONC 28.7 g/dL (32.0-36.0); Mean Corpuscular Volume 108.1 fl (81.6-98.3); Mean Platelet Volume 8.3 fl (7.4-10.4); Platelet Count 251 10x3/uL (150-450); RBC Distribution Width 15.5 % (11.5-14.5); Red Blood Cell (RBC) Count 3.58 10x6/uL (3.90-5.03); White Blood Cell (WBC) Count 8.2 10x3/uL (3.5-10.5)
[2021-02-05 17:37] LABS: INR-International Normal Ratio 0.9; PTT Less than 20.0 sec (22.0-33.0); Prothrombin Time 9.8 sec (9.5-12.1)
[2021-02-05 17:39] LABS: ALT (SGPT) 25 U/L (8-55); AST (SGOT) 21 U/L (5-34); Albumin 3.8 g/dL (3.5-5.0); Alkaline Phosphatase 86 U/L (40-110); Anion Gap 15 mmol/L (10-20); BUN (Urea Nitrogen) 10 mg/dL (9.8-20.1); Bilirubin, Total 0.2 mg/dL (0.2-1.2); Calc. Creatinine Clearance 0 mL/min (70-130); Calcium 8.8 mg/dL (7.8-10.44); Carbon Dioxide 37 mmol/L (22-29); Chloride 99 mmol/L (98-107); Globulin 2.1 g/dL (2.4-3.5); Glucose 131 mg/dL (70-105); Potassium 4.7 mmol/L (3.5-5.1); Protein, Total 5.9 g/dL (6.0-8.3); Sodium 146 mmol/L (136-145)
[2021-02-05] MEDS ORDERED: Dexamethasone 10 MG/ML VIAL ONE (17:42)
[2021-02-05] MEDS ORDERED: Morphine 4 MG/ML VIAL ONE ×2 (17:43→18:44)
[2021-02-05] MEDS ORDERED: Boostrix 0.5 ML (Tdap) VIAL ONE (17:43)
[2021-02-05 17:49] LABS: Actual Bicarbonate (HCO3v) 35 mEq/L (22-28); Base Excess 6.4 mEq/L (-2.0 to +3.0); Calcium, Ionized (venous) 1.06 mmol/L (1.16-1.32); Chloride (VBG) 99 mmol/L (98-106); Hemoglobin (Hb) 12.7 g/dL (11.7-16.0); Potassium (VBG) 4.55 mmol/L (3.70-5.30); Puncture Site Other Site; pH (venous) 7.33 (7.32-7.43)
[2021-02-05] MEDS ORDERED: Bacitracin 1 PK ONE (18:27)
[2021-02-05 18:32] LABS: Anisocytosis SLIGHT = 6-15 cells (100X) (0-5/hpf); Hypochromia SLIGHT = 6-15 cells (100X) (0-5/hpf); Macrocytosis SLIGHT = 6-15 cells (100X) (0-5/hpf); Ovalocytes SLIGHT = 2-5 cells (100X) (0-1/hpf); Platelet Morphology Comment Appears Adequate
== END 2021-02-05 19:07 ==
LOC: CSHERS 16:52
DX: T20.26XA Burn of second degree of forehead and cheek, initial encounter (principal); T20.24XA Burn of second degree of nose (septum), initial encounter; I10 Essential (primary) hypertension; J44.9 Chronic obstructive pulmonary disease, unspecified; F17.200 Nicotine dependence, unspecified, uncomplicated; X08.8XXA Exposure to other specified smoke, fire and flames, initial encounter; Z23 Encounter for immunization
CPT/HCPCS: 71045; 80053; 82805; 85025; 85610; 85730; 90471; 90715; 96374; 96375; J1100; J2270

== ENCOUNTER 2021-04-02 18:02 | Inpatient (IN) | payer OTHER, MEDICAID ==
[2021-04-02 18:59] LABS: #Monocytes 0.5 10x3/uL (0.0-1.1); %Basophils 0.4 % (0.0-2.0); %Lymphocytes 6.7 % (18.0-47.0); %Monocytes 5.7 % (0.0-10.0); Hemoglobin 11.3 g/dL (12.0-15.5); Mean Corpuscular HGB CONC 29.7 g/dL (32.0-36.0); Mean Corpuscular Hemoglobin 29.9 pg (27.0-33.0); Mean Corpuscular Volume 100.5 fl (81.6-98.3); Mean Platelet Volume 9.2 fl (7.4-10.4); Platelet Count 204 10x3/uL (150-450); RBC Distribution Width 17.2 % (11.5-14.5); Red Blood Cell (RBC) Count 3.78 10x6/uL (3.90-5.03); White Blood Cell (WBC) Count 8.5 10x3/uL (3.5-10.5)
[2021-04-02 19:16] LABS: Platelet Morphology Comment Appears Adequate
[2021-04-02 19:17] LABS: ALT (SGPT) 13 U/L (8-55); AST (SGOT) 16 U/L (5-34); Albumin 3.6 g/dL (3.5-5.0); Alkaline Phosphatase 55 U/L (40-110); Anion Gap 17 mmol/L (10-20); Anisocytosis SLIGHT = 6-15 cells (100X) (0-5/hpf); BUN (Urea Nitrogen) 14 mg/dL (9.8-20.1); Bilirubin, Total 0.7 mg/dL (0.2-1.2); CK (CPK) 19 U/L (29-168); Calc. Creatinine Clearance 0 mL/min (70-130); Calcium 8.6 mg/dL (7.8-10.44); Carbon Dioxide 32 mmol/L (22-29); Chloride 99 mmol/L (98-107); Globulin 1.9 g/dL (2.4-3.5); Glucose 95 mg/dL (70-105); Hypochromia SLIGHT = 6-15 cells (100X) (0-5/hpf); Potassium 3.5 mmol/L (3.5-5.1); Protein, Total 5.5 g/dL (6.0-8.3); Sodium 144 mmol/L (136-145)
[2021-04-02 20:21] LABS: Bilirubin Neg (Negative); Blood, Urine 10 (Negative); Clarity Clear (Clear); Glucose, Urine (Dipstick) Normal (Negative); Ketone, Urine 15 mg/dL (Negative); Leukocyte Negative (Negative); Nitrite Negative (Negative); Protein, Urine (Dipstick) 30 mg/dl (Neg-Trace); Specific Gravity, Urine 1.015 (1.002-1.036)
[2021-04-02 20:25] LABS: Bacteria/HPF Rare-Few HPF (None Seen); Mucous/LPF Rare LPF (<2+); RBC/HPF 0-3 HPF (0-3); Squamous Epithelial None Seen HPF (0-3)
[2021-04-02 20:35] LABS: WBC/HPF 0-3 HPF (0-3)
[2021-04-02] MEDS ORDERED: Ondansetron PF 4 MG/2 ML Vial IVP PRN (23:29)
[2021-04-02] MEDS ORDERED: Senokot S 8.6-50 MG TAB PO PRN (23:29)
[2021-04-02] MEDS ORDERED: Calcium Carbonate 500 MG ChewTAB PO PRN (23:29)
[2021-04-02] MEDS ORDERED: Guaifenesin DM 100-10/5 ML UDCUP PO PRN (23:29)
[2021-04-02] MEDS ORDERED: Zolpidem Tartrate 5 MG TAB PO PRN (23:29)
[2021-04-02] MEDS ORDERED: Potassium Chloride 20 MEQ TAB PO SCH (23:45)
[2021-04-03] MEDS ORDERED: levETIRAcetam 500 MG in Sodium Chloride 0.9% 100 ML IVPB SCH (00:15)
[2021-04-03 01:25] VITALS: BMI 17.2
[2021-04-03 01:28] LABS: SARS-CoV-2 NAA Rapid Test Not Detected (NotDetected)
[2021-04-03] MEDS ORDERED: levETIRAcetam 500 MG/5 ML VIAL ONE (01:34)
[2021-04-03] MEDS ORDERED: ALPRAZolam 1 MG TAB PO SCH (02:00)
[2021-04-03 04:13] LABS: Amphetamine Not Detected (NotDetected); Barbiturates Screen Not Detected (NotDetected); Benzodiazepine Screen Detected (NotDetected); Cocaine Metabolite Screen Not Detected (NotDetected); Methadone Not Detected (NotDetected); Methamphetamine Not Detected (NotDetected); Opiate Screen Not Detected (NotDetected); Oxycodone Screen Not Detected (NotDetected); Phencyclidine (PCP) Not Detected (NotDetected); THC/Cannabinoid Screen Not Detected (NotDetected); Tricyclic Screen Not Detected (NotDetected)
[2021-04-03 04:39] LABS: Anion Gap 12 mmol/L (10-20); BUN (Urea Nitrogen) 15 mg/dL (9.8-20.1); Calc. Creatinine Clearance 70 mL/min (70-130); Calcium 8.6 mg/dL (7.8-10.44); Carbon Dioxide 36 mmol/L (22-29); Chloride 102 mmol/L (98-107); Glucose 118 mg/dL (70-105); Magnesium 1.7 mg/dL (1.6-2.6); Potassium 3.4 mmol/L (3.5-5.1); Sodium 147 mmol/L (136-145)
[2021-04-03 04:53] LABS: Thyroid Stimulating Hormone 1.2982 uIU/mL (0.35-4.94)
[2021-04-03 06:09] LABS: Syphilis Antibody Nonreactive (Nonreactive); Syphilis Antibody Index 0.02 S/CO (<1.00 Non-Reactive)
[2021-04-03] MEDS ORDERED: Mometasone/Formoterol 200/5 60 PUFF INH SCH (06:30)
[2021-04-03] MEDS: Levothyroxine Sodium 50 MCG TAB PO SCH (06:40)
[2021-04-03] MEDS: Mometasone 100 MCG/PUFF (1 INHALER) INH SCH ×2 (07:18→19:01)
[2021-04-03] MEDS ORDERED: Non-Formulary Medication 1 EACH (Fluticasone/Umeclidin/Vilanter [Trelegy Ellipta 100-62.5- INH SCH (09:00)
[2021-04-03 10:32] LABS: Actual Bicarbonate (HCO3v) 32 mEq/L (22-28); Base Excess 5.5 mEq/L (-2.0 to +3.0); Calcium, Ionized (venous) 1.09 mmol/L (1.16-1.32); Chloride (VBG) 99 mmol/L (98-106); Hemoglobin (Hb) 12.2 g/dL (11.7-16.0); Potassium (VBG) 3.82 mmol/L (3.70-5.30); Puncture Site Other Site; Sodium 141.7 mmol/L (133-146); pH (venous) 7.37 (7.32-7.43)
[2021-04-03] MEDS: ALPRAZolam 0.25 MG TAB PO PRN (12:28)
[2021-04-03] MEDS: cefTRIAXone\\ROCEPHIN 1 GM in Sodium Chloride 0.9% 100 ML IVPB SCH (12:28)
[2021-04-03] MEDS: levETIRAcetam 500 MG TAB PO SCH ×2 (12:28→22:09)
[2021-04-03] MEDS: Losartan Potassium 50 MG TAB PO SCH (12:29)
[2021-04-03] MEDS: Folic Acid 1 MG TAB PO SCH (12:29)
[2021-04-03] MEDS: Cyanocobalamin (Vitamin B-12) 1,000 MCG TAB PO SCH (12:29)
[2021-04-03] MEDS: pyridOXINE 50 MG (B6) TAB PO SCH (12:30)
[2021-04-03] MEDS: Cyproheptadine 4 MG TAB PO SCH ×2 (12:30→22:12)
[2021-04-03] MEDS: Amlodipine 5 MG TAB PO SCH (12:30)
[2021-04-03] MEDS: Acetaminophen 325 MG TAB PO PRN (12:31)
[2021-04-03 12:38] LABS: Hemoglobin A1c 4.6 % (4.0-6.0)
[2021-04-03] MEDS ORDERED: QUETIAPINE FUMARATE 150 MG PO SCH (21:00)
[2021-04-03] MEDS: Atorvastatin Calcium 10 MG TAB PO SCH (22:09)
[2021-04-04 04:49] LABS: #Eosinphils 0.1 10x3/uL (0.0-0.5); #Monocytes 0.5 10x3/uL (0.0-1.1); #Neutrophils 4.2 10x3/uL (1.5-8.4); %Basophils 0.5 % (0.0-2.0); %Eosinophils 2.2 % (0.0-6.0); %Lymphocytes 15.5 % (18.0-47.0); %Neutrophils 72.5 % (40.0-75.0); Hemoglobin 10.8 g/dL (12.0-15.5); Mean Corpuscular HGB CONC 28.3 g/dL (32.0-36.0); Mean Corpuscular Hemoglobin 29.8 pg (27.0-33.0); Mean Platelet Volume 8.7 fl (7.4-10.4); Platelet Count 204 10x3/uL (150-450); Red Blood Cell (RBC) Count 3.63 10x6/uL (3.90-5.03); White Blood Cell (WBC) Count 5.8 10x3/uL (3.5-10.5)
[2021-04-04 04:58] LABS: BUN (Urea Nitrogen) 10 mg/dL (9.8-20.1); Calc. Creatinine Clearance 80 mL/min (70-130); Calcium 8.5 mg/dL (7.8-10.44); Glucose 85 mg/dL (70-105)
[2021-04-04 05:06] LABS: Anion Gap 14 mmol/L (10-20); Carbon Dioxide 35 mmol/L (22-29); Chloride 100 mmol/L (98-107); Potassium 4.5 mmol/L (3.5-5.1); Sodium 144 mmol/L (136-145)
[2021-04-04] MEDS: Levothyroxine Sodium 50 MCG TAB PO SCH (06:33)
[2021-04-04] MEDS: Mometasone 100 MCG/PUFF (1 INHALER) INH SCH ×2 (07:33→18:54)
[2021-04-04] MEDS ORDERED: FLU VACC QS2021-22(6MOS UP)/PF 60 MCG/0.5 ML SYRINGE IM ONE (09:00)
[2021-04-04] MEDS: Folic Acid 1 MG TAB PO SCH (09:08)
[2021-04-04] MEDS: levETIRAcetam 500 MG TAB PO SCH ×2 (09:08→21:13)
[2021-04-04] MEDS: Cyanocobalamin (Vitamin B-12) 1,000 MCG TAB PO SCH (09:09)
[2021-04-04] MEDS: pyridOXINE 50 MG (B6) TAB PO SCH (09:09)
[2021-04-04] MEDS: Amlodipine 5 MG TAB PO SCH (09:09)
[2021-04-04] MEDS: Losartan Potassium 50 MG TAB PO SCH (09:09)
[2021-04-04] MEDS: cefTRIAXone\\ROCEPHIN 1 GM in Sodium Chloride 0.9% 100 ML IVPB SCH (09:10)
[2021-04-04] MEDS: Cyproheptadine 4 MG TAB PO SCH ×2 (09:14→21:13)
[2021-04-04] MEDS: Acetaminophen 325 MG TAB PO PRN (15:24)
[2021-04-04] MEDS: ALPRAZolam 0.25 MG TAB PO PRN ×2 (15:24→21:16)
[2021-04-04] MEDS: Atorvastatin Calcium 10 MG TAB PO SCH (21:13)
[2021-04-05] MEDS ORDERED: diphenhydrAMINE 25 MG CAP PO PRN (00:15)
[2021-04-05] MEDS: Nicotine 14 MG PATCH TOP PRN (00:21)
[2021-04-05] MEDS: Acetaminophen 325 MG TAB PO PRN ×3 (00:21→20:15)
[2021-04-05 07:15] LABS: ALT (SGPT) 14 U/L (8-55); AST (SGOT) 16 U/L (5-34); Albumin 3.4 g/dL (3.5-5.0); Alkaline Phosphatase 63 U/L (40-110); BUN (Urea Nitrogen) 13 mg/dL (9.8-20.1); Bilirubin, Total 0.4 mg/dL (0.2-1.2); Calc. Creatinine Clearance 70 mL/min (70-130); Globulin 2.1 g/dL (2.4-3.5); Glucose 70 mg/dL (70-105); Magnesium 1.8 mg/dL (1.6-2.6); Phosphorus 3.1 mg/dL (2.3-4.7); Protein, Total 5.5 g/dL (6.0-8.3)
[2021-04-05 07:20] LABS: #Eosinphils 0.1 10x3/uL (0.0-0.5); #Monocytes 0.6 10x3/uL (0.0-1.1); #Neutrophils 5.9 10x3/uL (1.5-8.4); %Basophils 0.5 % (0.0-2.0); %Eosinophils 1.9 % (0.0-6.0); %Lymphocytes 11.6 % (18.0-47.0); %Monocytes 8.1 % (0.0-10.0); %Neutrophils 77.6 % (40.0-75.0); Hemoglobin 10.8 g/dL (12.0-15.5); Mean Corpuscular HGB CONC 28.7 g/dL (32.0-36.0); Mean Corpuscular Hemoglobin 29.2 pg (27.0-33.0); Mean Corpuscular Volume 101.6 fl (81.6-98.3); Mean Platelet Volume 8.7 fl (7.4-10.4); Platelet Count 224 10x3/uL (150-450); RBC Distribution Width 17.1 % (11.5-14.5); White Blood Cell (WBC) Count 7.5 10x3/uL (3.5-10.5)
[2021-04-05 07:22] LABS: Anion Gap 13 mmol/L (10-20); Carbon Dioxide 36 mmol/L (22-29); Chloride 99 mmol/L (98-107); Potassium 5.4 mmol/L (3.5-5.1); Sodium 143 mmol/L (136-145)
[2021-04-05] MEDS: Mometasone 100 MCG/PUFF (1 INHALER) INH SCH ×2 (07:24→19:12)
[2021-04-05] MEDS: Levothyroxine Sodium 50 MCG TAB PO SCH (07:31)
[2021-04-05 08:02] LABS: Anisocytosis SLIGHT = 6-15 cells (100X) (0-5/hpf); Hypochromia SLIGHT = 6-15 cells (100X) (0-5/hpf); Ovalocytes SLIGHT = 2-5 cells (100X) (0-1/hpf); Platelet Morphology Comment Appears Adequate
[2021-04-05 08:31] LABS: SARS-CoV-2 NAA Rapid Test Not Detected (NotDetected)
[2021-04-05] MEDS: Cyproheptadine 4 MG TAB PO SCH ×2 (09:28→20:25)
[2021-04-05] MEDS: Losartan Potassium 50 MG TAB PO SCH (09:28)
[2021-04-05] MEDS: levETIRAcetam 500 MG TAB PO SCH ×2 (09:28→20:16)
[2021-04-05] MEDS: Folic Acid 1 MG TAB PO SCH (09:28)
[2021-04-05] MEDS: Amlodipine 5 MG TAB PO SCH (09:28)
[2021-04-05] MEDS: Cyanocobalamin (Vitamin B-12) 1,000 MCG TAB PO SCH (09:29)
[2021-04-05] MEDS: ALPRAZolam 0.25 MG TAB PO PRN (12:14)
[2021-04-05] MEDS: ALPRAZolam 1 MG TAB PO PRN (20:15)
[2021-04-05] MEDS: Atorvastatin Calcium 10 MG TAB PO SCH (20:25)
[2021-04-06 05:00] LABS: ALT (SGPT) 12 U/L (8-55); AST (SGOT) 15 U/L (5-34); Albumin 3.2 g/dL (3.5-5.0); Alkaline Phosphatase 48 U/L (40-110); BUN (Urea Nitrogen) 9 mg/dL (9.8-20.1); Bilirubin, Total 0.3 mg/dL (0.2-1.2); Calc. Creatinine Clearance 75 mL/min (70-130); Calcium 8.6 mg/dL (7.8-10.44); Globulin 2.1 g/dL (2.4-3.5); Glucose 87 mg/dL (70-105); Magnesium 1.9 mg/dL (1.6-2.6); Phosphorus 3.5 mg/dL (2.3-4.7); Protein, Total 5.3 g/dL (6.0-8.3)
[2021-04-06 05:07] LABS: #Eosinphils 0.1 10x3/uL (0.0-0.5); #Monocytes 0.5 10x3/uL (0.0-1.1); #Neutrophils 4.7 10x3/uL (1.5-8.4); %Basophils 0.5 % (0.0-2.0); %Eosinophils 1.3 % (0.0-6.0); %Lymphocytes 13.4 % (18.0-47.0); %Monocytes 8.2 % (0.0-10.0); %Neutrophils 76.4 % (40.0-75.0); Hemoglobin 10.8 g/dL (12.0-15.5); Mean Corpuscular Hemoglobin 29.4 pg (27.0-33.0); Mean Corpuscular Volume 101.4 fl (81.6-98.3); Mean Platelet Volume 8.4 fl (7.4-10.4); Platelet Count 215 10x3/uL (150-450); RBC Distribution Width 17.3 % (11.5-14.5); Red Blood Cell (RBC) Count 3.67 10x6/uL (3.90-5.03); White Blood Cell (WBC) Count 6.2 10x3/uL (3.5-10.5)
[2021-04-06 05:13] LABS: Anion Gap 11 mmol/L (10-20); Carbon Dioxide 36 mmol/L (22-29); Chloride 101 mmol/L (98-107); Potassium 4.4 mmol/L (3.5-5.1); Sodium 144 mmol/L (136-145)
[2021-04-06 05:57] LABS: Hypochromia SLIGHT = 6-15 cells (100X) (0-5/hpf); Platelet Morphology Comment Appears Adequate
[2021-04-06] MEDS: Levothyroxine Sodium 50 MCG TAB PO SCH (06:42)
[2021-04-06] MEDS: Mometasone 100 MCG/PUFF (1 INHALER) INH SCH ×2 (06:58→20:11)
[2021-04-06] MEDS: pyridOXINE 50 MG (B6) TAB PO SCH (09:00)
[2021-04-06] MEDS: levETIRAcetam 500 MG TAB PO SCH ×2 (09:00→22:09)
[2021-04-06] MEDS: Amlodipine 5 MG TAB PO SCH (09:00)
[2021-04-06] MEDS: Losartan Potassium 50 MG TAB PO SCH (09:01)
[2021-04-06] MEDS: Folic Acid 1 MG TAB PO SCH (09:03)
[2021-04-06] MEDS: Cyanocobalamin (Vitamin B-12) 1,000 MCG TAB PO SCH (09:03)
[2021-04-06] MEDS: ALPRAZolam 1 MG TAB PO PRN ×3 (09:03→22:51)
[2021-04-06] MEDS ORDERED: Hydrocortisone 1% Cream 30 GM TUBE TOP SCH (09:45)
[2021-04-06] MEDS ORDERED: diphenhydrAMINE 25 MG CAP PO SCH (09:45)
[2021-04-06] MEDS ORDERED: predniSONE 20 MG TAB PO SCH (09:45)
[2021-04-06] MEDS: Cyproheptadine 4 MG TAB PO SCH ×2 (09:55→22:08)
[2021-04-06] MEDS: diphenhydrAMINE 25 MG CAP PO PRN (15:31)
[2021-04-06] MEDS ORDERED: HYDROcodone/Acetaminophen 5/325 mg Tablet PO SCH (21:30)
[2021-04-06] MEDS: Atorvastatin Calcium 10 MG TAB PO SCH (22:07)
[2021-04-06] MEDS: Hydrocortisone 1% Cream 30 GM TUBE TOP SCH (22:08)
[2021-04-06] MEDS: Nicotine 14 MG PATCH TOP PRN (22:11)
[2021-04-07] MEDS: Levothyroxine Sodium 50 MCG TAB PO SCH (06:01)
[2021-04-07] MEDS: diphenhydrAMINE 25 MG CAP PO PRN (06:01)
[2021-04-07 06:44] LABS: #Monocytes 0.4 10x3/uL (0.0-1.1); #Neutrophils 3.7 10x3/uL (1.5-8.4); %Basophils 0.4 % (0.0-2.0); %Eosinophils 0.8 % (0.0-6.0); %Lymphocytes 15.5 % (18.0-47.0); %Monocytes 8.6 % (0.0-10.0); %Neutrophils 74.5 % (40.0-75.0); Hemoglobin 11.4 g/dL (12.0-15.5); Mean Corpuscular Hemoglobin 29.6 pg (27.0-33.0); Mean Corpuscular Volume 102.1 fl (81.6-98.3); Mean Platelet Volume 9.7 fl (7.4-10.4); Platelet Count 111 10x3/uL (150-450); RBC Distribution Width 17.4 % (11.5-14.5); Red Blood Cell (RBC) Count 3.85 10x6/uL (3.90-5.03)
[2021-04-07 07:01] LABS: ALT (SGPT) 16 U/L (8-55); AST (SGOT) 21 U/L (5-34); Albumin 3.6 g/dL (3.5-5.0); Alkaline Phosphatase 65 U/L (40-110); Anion Gap 10 mmol/L (10-20); BUN (Urea Nitrogen) 16 mg/dL (9.8-20.1); Bilirubin, Total 0.3 mg/dL (0.2-1.2); Calc. Creatinine Clearance 69 mL/min (70-130); Calcium 8.9 mg/dL (7.8-10.44); Carbon Dioxide 35 mmol/L (22-29); Chloride 99 mmol/L (98-107); Globulin 2.2 g/dL (2.4-3.5); Glucose 90 mg/dL (70-105); Magnesium 1.9 mg/dL (1.6-2.6); Phosphorus 3.6 mg/dL (2.3-4.7); Potassium 4.3 mmol/L (3.5-5.1); Protein, Total 5.8 g/dL (6.0-8.3); Sodium 140 mmol/L (136-145)
[2021-04-07 07:17] LABS: Hypochromia SLIGHT = 6-15 cells (100X) (0-5/hpf); Platelet Morphology Comment Appears Adequate
[2021-04-07 07:18] LABS: Platelet Clumps SLIGHT
[2021-04-07] MEDS: Mometasone 100 MCG/PUFF (1 INHALER) INH SCH (07:30)
[2021-04-07] MEDS: pyridOXINE 50 MG (B6) TAB PO SCH ×2 (07:59→09:16)
[2021-04-07] MEDS ORDERED: predniSONE 20 MG TAB PO SCH (08:00)
[2021-04-07] MEDS: Amlodipine 5 MG TAB PO SCH (09:16)
[2021-04-07] MEDS: Cyproheptadine 4 MG TAB PO SCH (09:16)
[2021-04-07] MEDS: Losartan Potassium 50 MG TAB PO SCH (09:16)
[2021-04-07] MEDS: Cyanocobalamin (Vitamin B-12) 1,000 MCG TAB PO SCH (09:16)
[2021-04-07] MEDS: Folic Acid 1 MG TAB PO SCH (09:17)
[2021-04-07] MEDS: ALPRAZolam 1 MG TAB PO PRN (09:17)
[2021-04-07] MEDS: levETIRAcetam 500 MG TAB PO SCH (09:17)
[2021-04-07] MEDS: Hydrocortisone 1% Cream 30 GM TUBE TOP SCH (09:20)
[2021-04-07] MEDS ORDERED: Terbinafine 250 MG TAB PO SCH (11:00)
[2021-04-07 12:24] VITALS: BP 157/73; TEMP 99.4
[2021-04-08] MEDS ORDERED: Terbinafine 250 MG TAB PO SCH (09:00)
== END 2021-04-07 14:48 | disposition home or self-care (01) | DRG 100 ==
LOC: CSHERS 18:02 → OBSVTOIN 23:29 → INTOOBSV 23:29 → CSHTELE 23:29 → UNDOADMIN 23:29 → CSHTELE 04-03 01:03 → UNDOADMIN 04-03 01:03 → CSHTELE 04-04 11:09
PROVIDERS: ADMIT Student in an Organized Health Care Education/Training Program; ATTEND Family Medicine
DX: G40.909 Epilepsy, unspecified, not intractable, without status epilepticus (principal); E43 Unspecified severe protein-calorie malnutrition; G93.41 Metabolic encephalopathy; E87.2 Acidosis; J96.11 Chronic respiratory failure with hypoxia; R64 Cachexia; Z68.1 Body mass index [BMI] 19.9 or less, adult; I10 Essential (primary) hypertension; E78.5 Hyperlipidemia, unspecified; J44.9 Chronic obstructive pulmonary disease, unspecified; F41.9 Anxiety disorder, unspecified; F32.A Depression, unspecified; Z96.641 Presence of right artificial hip joint; E86.0 Dehydration; D53.9 Nutritional anemia, unspecified; G43.909 Migraine, unspecified, not intractable, without status migrainosus; Z20.822 Contact with and (suspected) exposure to COVID-19; M79.604 Pain in right leg; R50.9 Fever, unspecified; L29.9 Pruritus, unspecified; Z88.8 Allergy status to other drugs, medicaments and biological substances; Z79.51 Long term (current) use of inhaled steroids; Z79.899 Other long term (current) drug therapy; Z90.710 Acquired absence of both cervix and uterus; Z99.81 Dependence on supplemental oxygen; Z87.891 Personal history of nicotine dependence; Z86.73 Personal history of transient ischemic attack (TIA), and cerebral infarction without residual deficits
CPT/HCPCS: 0240U; 36415; 36416; 51701; 70450; 71045; 80048; 80053; 80177; 80185; 80306; 81003; 81015; 82550; 82607; 82746; 82805; 83036; 83605; 83735; 83880; 84100; 84145; 84443; 84484; 85025; 86140; 86780; 87040; 87086; 93005; 94640; 94664; 94760; 96374; 96375; 96376; G0378; J0696; J1953; J3490; J7512; J7620; U0002

== ENCOUNTER 2021-07-13 19:57 | Emergency (ER) | payer MEDICARE, MEDICAID ==
[2021-07-13 21:38] LABS: #Monocytes 0.7 10x3/uL (0.0-1.1); #Neutrophils 5.5 10x3/uL (1.5-8.4); %Basophils 0.3 % (0.0-2.0); %Eosinophils 0.1 % (0.0-6.0); %Lymphocytes 7.6 % (18.0-47.0); %Monocytes 9.7 % (0.0-10.0); Hemoglobin 12.4 g/dL (12.0-15.5); Mean Corpuscular HGB CONC 29.8 g/dL (32.0-36.0); Mean Corpuscular Hemoglobin 27.9 pg (27.0-33.0); Mean Corpuscular Volume 93.5 fl (81.6-98.3); Mean Platelet Volume 8.7 fl (7.4-10.4); RBC Distribution Width 16.1 % (11.5-14.5); Red Blood Cell (RBC) Count 4.45 10x6/uL (3.90-5.03); White Blood Cell (WBC) Count 6.7 10x3/uL (3.5-10.5)
[2021-07-13 21:39] LABS: Platelet Count 272 10x3/uL (150-450)
[2021-07-13 21:47] LABS: ALT (SGPT) 16 U/L (8-55); AST (SGOT) 29 U/L (5-34); Albumin 4.1 g/dL (3.5-5.0); Alkaline Phosphatase 56 U/L (40-110); Anion Gap 15 mmol/L (10-20); BUN (Urea Nitrogen) 12 mg/dL (9.8-20.1); Bilirubin, Total 0.5 mg/dL (0.2-1.2); Calc. Creatinine Clearance 0 mL/min (70-130); Carbon Dioxide 35 mmol/L (22-29); Chloride 94 mmol/L (98-107); Globulin 2.5 g/dL (2.4-3.5); Glucose 94 mg/dL (70-105); Potassium 4.4 mmol/L (3.5-5.1); Protein, Total 6.6 g/dL (6.0-8.3); Sodium 140 mmol/L (136-145)
[2021-07-13 21:59] LABS: Hypochromia SLIGHT = 6-15 cells (100X) (0-5/hpf); Platelet Morphology Comment Appears Adequate
[2021-07-13 22:59] LABS: Bilirubin Neg (Negative); Blood, Urine Negative (Negative); Clarity Clear (Clear); Glucose, Urine (Dipstick) Normal (Negative); Ketone, Urine 50 mg/dL (Negative); Leukocyte Negative (Negative); Nitrite Negative (Negative); Protein, Urine (Dipstick) 100 mg/dl (Neg-Trace)
[2021-07-13 23:13] LABS: Bacteria/HPF Rare-Few HPF (None Seen); Mucous/LPF Rare LPF (<2+); RBC/HPF None Seen HPF (0-3); Squamous Epithelial 0-3 HPF (0-3); WBC/HPF 0-3 HPF (0-3)
[2021-07-13 23:28] LABS: Actual Bicarbonate (HCO3a) 34.4 mEq/L (22-28); Base Excess (BEa) 6.2 mEq/L (-2.0 to +3.0); CO2 Tension 67.3 mmHg (35.0-45.0); Calcium, Ionized (arterial) 1.24 mmol/L (1.12-1.30); Hemoglobin (Hb) 13.1 g/dL (12.0-16.0); O2 Tension (PaO2), arterial 132.2 mmHg (80.0-100.0); Potassium - ABG Lab 3.6 mmol/L (3.70-5.30); Puncture Site RRA; pH, Arterial 7.33 (7.35-7.45)
[2021-07-13 23:31] LABS: ALV-art Gradient 11.835 mmHg (0-20)
[2021-07-14 00:20] LABS: Amphetamine Not Detected (NotDetected); Barbiturates Screen Not Detected (NotDetected); Benzodiazepine Screen Detected (NotDetected); Cocaine Metabolite Screen Not Detected (NotDetected); Methadone Not Detected (NotDetected); Methamphetamine Not Detected (NotDetected); Opiate Screen Not Detected (NotDetected); Oxycodone Screen Not Detected (NotDetected); Phencyclidine (PCP) Not Detected (NotDetected); THC/Cannabinoid Screen Not Detected (NotDetected); Tricyclic Screen Not Detected (NotDetected)
== END 2021-07-14 00:33 | disposition admitted as inpatient to this hospital (09) ==
LOC: CSHERS 19:57
DX: R41.82 Altered mental status, unspecified (principal); R62.7 Adult failure to thrive; I10 Essential (primary) hypertension; J44.9 Chronic obstructive pulmonary disease, unspecified; R00.1 Bradycardia, unspecified; F17.200 Nicotine dependence, unspecified, uncomplicated; Z68.31 Body mass index [BMI] 31.0-31.9, adult
CPT/HCPCS: 36600; 51701; 70450; 71045; 80053; 80306; 81003; 81015; 82140; 82805; 84443; 84484; 85025; 87040; 93005; 94760